=== PATIENT | female | born 1995 | race Caucasian/White ===

== ENCOUNTER 2017-05-17 17:11 | Emergency (ER) | payer SELFPAY ==
[~2017-05-17 17:11] MED LIST: BCP; UNA3I IV
[2017-05-17 20:31] VITALS: BP 135/81
== END 2017-05-17 20:31 | disposition home or self-care (01) ==
LOC: ED 17:11
DX: Z00.8 Encounter for other general examination (principal)

== ENCOUNTER 2017-06-20 18:31 | Emergency (ER) | payer OTHER ==
[~2017-06-20] VITALS: Ht 149.9 cm; Wt 56.2 kg
[2017-06-20 20:45] VITALS: BP 115/67
== END 2017-06-20 20:14 | disposition home or self-care (01) ==
LOC: ED 18:31
DX: J02.9 Acute pharyngitis, unspecified (principal)
CPT/HCPCS: 86308; J0696; J1100

== ENCOUNTER 2017-10-12 11:05 | Emergency (ER) | payer OTHER ==
[~2017-10-12] VITALS: Ht 149.9 cm; Wt 60.9 kg
[2017-10-12 12:26] VITALS: BP 108/58
== END 2017-10-12 12:26 | disposition home or self-care (01) ==
LOC: ED 11:05
PROC: 2W3UX1Z Immobilization of Right Toe using Splint (ICD-10-PCS; principal; 2017-10-12)
DX: S92.534A Nondisplaced fracture of distal phalanx of right lesser toe(s), initial encounter for closed fracture (principal); W22.09XA Striking against other stationary object, initial encounter; Y92.008 Other place in unspecified non-institutional (private) residence as the place of occurrence of the external cause

== ENCOUNTER 2018-01-03 11:20 | Emergency (ER) | payer OTHER ==
[~2018-01-03] VITALS: Ht 152.4 cm; Wt 59.4 kg
[2018-01-03 11:30] VITALS: BP 118/75; Ht 152.4 cm; Wt 59.4 kg
== END 2018-01-03 13:28 | disposition home or self-care (01) ==
LOC: ED 11:20
DX: J02.8 Acute pharyngitis due to other specified organisms (principal)

== ENCOUNTER 2018-03-05 11:25 | Emergency (ER) | payer OTHER ==
[~2018-03-05] VITALS: Ht 149.9 cm; Wt 59.4 kg
[2018-03-05 11:42] VITALS: Ht 149.9 cm; Wt 59.4 kg
[2018-03-05 13:36] VITALS: BP 124/66
== END 2018-03-05 13:36 | disposition home or self-care (01) ==
LOC: ED 11:25
DX: S81.011D Laceration without foreign body, right knee, subsequent encounter (principal); W17.89XD Other fall from one level to another, subsequent encounter
CPT/HCPCS: 90715

== ENCOUNTER 2018-09-17 15:24 | Emergency (ER) | payer OTHER ==
[~2018-09-17] VITALS: Ht 149.9 cm; Wt 56.4 kg
[2018-09-17 15:42] VITALS: BP 143/78; Ht 149.9 cm; Wt 56.4 kg
== END 2018-09-17 16:29 | disposition home or self-care (01) ==
LOC: ED 15:24
DX: J03.90 Acute tonsillitis, unspecified (principal); L30.9 Dermatitis, unspecified
CPT/HCPCS: J0696; J7512

== ENCOUNTER 2019-03-06 09:37 | Emergency (ER) | payer OTHER ==
[~2019-03-06] VITALS: Ht 149.9 cm; Wt 57.2 kg
[2019-03-06 10:04] VITALS: Ht 149.9 cm; Wt 57.2 kg
[2019-03-06 13:36] VITALS: BP 129/68
== END 2019-03-06 13:36 | disposition home or self-care (01) ==
LOC: ED 09:37
DX: J06.9 Acute upper respiratory infection, unspecified (principal); J45.901 Unspecified asthma with (acute) exacerbation
CPT/HCPCS: 87804; J0561; J7512

== ENCOUNTER 2019-04-04 12:55 | Emergency (ER) | payer OTHER ==
[~2019-04-04] VITALS: Ht 149.9 cm; Wt 59.0 kg
[2019-04-04 13:02] VITALS: BP 112/75; Ht 149.9 cm; Wt 59.0 kg
== END 2019-04-04 14:02 | disposition home or self-care (01) ==
LOC: ED 12:55
DX: S01.112A Laceration without foreign body of left eyelid and periocular area, initial encounter (principal); V49.9XXA Car occupant (driver) (passenger) injured in unspecified traffic accident, initial encounter; Y93.89 Activity, other specified; Y92.410 Unspecified street and highway as the place of occurrence of the external cause; Y99.8 Other external cause status